=== PATIENT | female | born 2000 | race Caucasian/White ===

== ENCOUNTER 2022-11-27 19:26 | Emergency (ER) | payer OTHER ==
[~2022-11-27] VITALS: Ht 167.6 cm; Wt 96.5 kg
[2022-11-27 19:28] VITALS: BP 124/69; TEMP 98.6; O2SAT 98
[2022-11-27] MEDS ORDERED: CYCL-707 PO (21:48)
[2022-11-27] MEDS ORDERED: IBUP-1022 PO (21:48)
[2022-11-27] MEDS ORDERED: KETOROLAC TROMETHAMINE 10 MG TAB PO ONE (21:50)
[2022-11-27] MEDS ORDERED: diazePAM 5MG TABLET PO ONE (21:50)
== END 2022-11-27 22:09 | disposition home or self-care (01) ==
LOC: M ED 19:26
DX: M54.32 Sciatica, left side (principal); F17.210 Nicotine dependence, cigarettes, uncomplicated; Z79.1 Long term (current) use of non-steroidal anti-inflammatories (NSAID); Z79.899 Other long term (current) drug therapy

== ENCOUNTER 2023-05-14 15:34 | Emergency (ER) | payer OTHER, SELFPAY ==
[~2023-05-14] VITALS: Ht 167.6 cm; Wt 94.0 kg
[~2023-05-14 15:34] MED LIST: CYCL-707 PO; IBUP-1022 PO
[2023-05-14] MEDS ORDERED: BENA25CA4 PO (16:14)
[2023-05-14] MEDS: NS 1,000 ML IV ONE (17:37)
[2023-05-14] MEDS: ACETAMINOPHEN TAB 650MG DOSE (2X325MG) PO ONE (17:37)
[2023-05-14 17:44] LABS: BASO % 0.3 % (0.0-1.0); EOS # 1.3 10^3/uL (0.0-0.5); EOS % 9.1 % (0.0-3.0); HEMATOCRIT 41.5 % (36.0-47.0); HEMOGLOBIN 13.6 g/dl (12.0-15.5); LYMPH # 3.1 10^3/uL (1.5-5.0); LYMPH % 21.3 % (24.0-44.0); MEAN CORPUSCULAR HEMOGLOBIN 29.3 pg (27.0-33.0); MEAN CORPUSCULAR HGB CONC 32.8 g/dl (32.0-36.5); MEAN CORPUSCULAR VOLUME 89.4 fl (80.0-96.0); MONO # 1.4 10^3/uL (0.0-0.8); MONO % 9.3 % (2.0-8.0); NEUTROPHILS # 8.8 10^3/uL (1.5-8.5); NEUTROPHILS % 59.6 % (36.0-66.0); PLATELET COUNT, AUTOMATED 412 10^3/uL (150-450); RED BLOOD COUNT 4.64 10^6/uL (4.00-5.40); WHITE BLOOD COUNT 14.7 10^3/uL (4.0-10.0)
[2023-05-14] MEDS ORDERED: CEPH250T PO (19:35)
[2023-05-14 19:39] VITALS: BP 139/75; TEMP 99; O2SAT 99
== END 2023-05-14 19:54 | disposition home or self-care (01) ==
LOC: M ED 15:34
DX: T20.05XA Burn of unspecified degree of scalp [any part], initial encounter (principal); Z79.899 Other long term (current) drug therapy